=== PATIENT | male | born 1945 | race Caucasian/White ===

== ENCOUNTER → 2023-01-08 08:25 | Outpatient (CLI) | payer MEDICARE, OTHER, SELFPAY ==
--- NOTE | 2023-01-08 | DI.MRI.S_ITS ---
PROCEDURE: MR LUMBAR SPINE WO CON INDICATIONS: Radiculopathy, lumbar region TECHNIQUE: Noncontrast sagittal T1 spin echo and T2 fast echo, sagittal STIR, axial T1 and T2 fast spin echo through the lumbar spine. Axial and oblique coronal T1 spin echo and STIR through the sacrum. In cases with scoliosis, additional coronal T2 fast spin echo may be performed. COMPARISON: None. FINDINGS: Image quality: Excellent. Alignment and Curvature: There is normal bony alignment. Bone Marrow: Marrow is of normal overall signal. No acute vertebral body compression fractures. No sacral fractures. Spinal Cord: Conus medullaris terminates at the L1 level. Visualized cord demonstrates normal signal and size. Paraspinous Soft Tissues: No paravertebral masses. T12-L1: Normal appearance. L1-L2: Disc height is maintained. No central stenosis. Hypertrophic facet joints associated with mild bilateral foraminal stenosis L2-L3: Disc height is maintained. Circumferential disc bulge and hypertrophic facet joints results in moderate central stenosis. Moderate bilateral foraminal stenosis L3-L4: Disc space narrowing and circumferential disc bulge results in mild central stenosis. Moderate bilateral foraminal stenosis L4-L5: Disc height is maintained. No central stenosis. Moderate left and mild right foraminal stenosis L5-S1: Disc height loss and hypertrophic facet joints. No central stenosis. Moderate left and no right foraminal stenosis IMPRESSION: Multilevel degenerative disc disease and arthropathy results in varying degrees of central and foraminal stenosis including moderate central and foraminal stenosis L2-3 Approved by: Andrade Boss M.D. on 01/08/2023 at 13:28
== END ==
PROVIDERS: Referring Provider Physical Medicine & Rehabilitation; Visit Provider Physical Medicine & Rehabilitation
DX: M54.16 Radiculopathy, lumbar region (principal); M51.36 Other intervertebral disc degeneration, lumbar region; M48.061 Spinal stenosis, lumbar region without neurogenic claudication
CPT/HCPCS: 72148